=== PATIENT | male | born 1990 | race Caucasian/White ===

== ENCOUNTER 2017-11-27 15:51 | Emergency (ER) | payer SELFPAY ==
[2017-11-27 16:23] VITALS: TEMP 98.2; O2SAT 98
[2017-11-27] MEDS ORDERED: Sodium Chloride 0.9% 1,000 ML IV STA (17:14)
[2017-11-27] MEDS ORDERED: Sodium Chloride 0.9% 1,000 ML ONE (17:22)
[2017-11-27 17:25] LABS: BASO % 0.3 % (0.0-2.0); EOS # 0.1 K/uL (0.0-0.7); EOS % 0.5 % (0.0-4.0); HEMOGLOBIN 16.7 g/dL (12.0-18.0); LYMPH # 1.7 K/uL (1.0-4.3); LYMPH % 15.3 % (20.0-40.0); MEAN CELL VOLUME 88.1 fL (80.0-94.0); MEAN CORPUSCULAR HEMOGLOBIN 29.9 pg (27.0-31.0); MEAN PLATELET VOLUME 9.5 fL (7.2-11.7); MONO # 0.5 K/uL (0.0-0.8); MONO % 4.9 % (0.0-10.0); NEUT # 8.8 K/uL (1.8-7.0); NRBC % 0.1 % (0.0-2.0); RBC 5.6 Mil/uL (4.40-5.90); RED CELL DISTRIBUTION WIDTH 13.9 % (11.5-14.5); WHITE BLOOD COUNT 11.2 K/uL (4.8-10.8)
[2017-11-27 17:38] LABS: CALCIUM 9.3 mg/dl (8.6-10.4); GFR AFRICAN-AMERICAN > 60; GFR NON-AFRICAN AMERICAN > 60; LIPASE 100 U/L (23-300)
[2017-11-27 17:41] LABS: URINE BILIRUBIN NEGATIVE (NEGATIVE); URINE BLOOD LARGE (NEGATIVE); URINE CLARITY SL HAZY (Clear); URINE COLOR YELLOW (YELLOW); URINE GLUCOSE (UA) NEGATIVE (Normal)
[2017-11-27 17:42] LABS: URINE LEUKOCYTE ESTERASE NEGATIVE Leu/uL (Negative); URINE NITRATE NEGATIVE (NEGATIVE); URINE PROTEIN TRACE mg/dL (NEGATIVE); URINE UROBILINOGEN 0.2 mg/dL (0.2-1.0)
[2017-11-27 17:44] LABS: ALB/GLOB RATIO 1.2 (1.0-2.1); ALBUMIN 4.4 g/dL (3.5-5.0); ALT/SGPT 39 U/L (21-72); AST/SGOT 33 U/L (17-59); BLOOD UREA NITROGEN 16 mg/dL (9-20)
--- NOTE | 2017-11-27 18:13 | CT ---
PROCEDURE: CT Abdomen and Pelvis without Oral or IV contrast. HISTORY: Left flank pain COMPARISON: None available. TECHNIQUE: Contiguous axial images of the abdomen and pelvis. No oral or IV contrast administered. Coronal and Sagittal reformats generated and reviewed. Radiation dose: Total exam DLP = 1439.56 mGy-cm. This CT exam was performed using one or more of the following dose reduction techniques: Automated exposure control, adjustment of the mA and/or kV according to patient size, and/or use of iterative reconstruction technique. FINDINGS: There is limited evaluation of the solid organs without the administration of IV contrast. LOWER THORAX: No visible consolidation, pleural effusion, or pneumothorax. LIVER: Unremarkable unenhanced appearance. GALLBLADDER AND BILE DUCTS: Unremarkable unenhanced appearance. PANCREAS: Unremarkable unenhanced appearance. SPLEEN: Unremarkable unenhanced appearance. ADRENALS: Unremarkable unenhanced appearance. KIDNEYS AND URETERS: 2 mm proximal left ureteral calculus (series 3, image 109) with minimal proximal fullness of the collecting system. The unenhanced right kidney appears unremarkable without hydronephrosis or obstructing calculus evident. BLADDER: Under distention of the urinary bladder appears otherwise unremarkable. REPRODUCTIVE: Unremarkable. APPENDIX: The appendix appears within normal limits of caliber. No secondary signs of acute appendicitis. BOWEL: The stomach is nondistended. Lack of oral contrast limits evaluation for bowel pathology. The bowel loops appear within normal limits of caliber without evidence of intestinal obstruction. PERITONEUM: No significant free fluid. No definite free air. LYMPH NODES: No bulky lymphadenopathy identified. VASCULATURE: No aortic aneurysm. BONES: No acute osseous abnormality is detected. OTHER FINDINGS: None. IMPRESSION: 2 mm proximal left ureteral calculus with minimal proximal fullness of the collecting system.
[2017-11-27] MEDS ORDERED: Albuterol 0.083% Inhal Sol (2.5 mg/3 mL) UD ONE (18:22)
--- NOTE | 2017-11-27 18:34 | C.PDOC ---
Time Seen by Provider: 11/27/17 17:06 Chief Complaint (Nursing): Abdominal Pain History Per: Patient Onset/Duration Of Symptoms: Days (1), Waxing/Waning Current Symptoms Are (Timing): Still Present Severity: Moderate Location Of Pain/Discomfort: LUQ, LLQ Radiation Of Pain To:: Flank Quality Of Discomfort: "Pain" Associated Symptoms: Urinary Symptoms Exacerbating Factors: None Alleviating Factors: None Additional History Per: Prior Records Past Medical History Reviewed: Historical Data, Nursing Documentation, Vital Signs Vital Signs: Last Vital Signs Temp 98.2 F 11/27/17 16:21 Pulse 104 H 11/27/17 16:21 Resp 19 11/27/17 16:21 BP 176/96 H 11/27/17 16:21 Pulse Ox 98 11/27/17 16:21 - Medical History PMH: Asthma (CHILDHOOD) Surgical History: Tonsillectomy Family History: States: Unknown Family Hx - Social History Hx Tobacco Use: Yes Hx Alcohol Use: Yes Hx Substance Use: Yes - Immunization History Hx Tetanus Toxoid Vaccination: No Hx Influenza Vaccination: No Hx Pneumococcal Vaccination: No Review Of Systems Except As Marked, All Systems Reviewed And Found Negative. Constitutional: Negative for: Fever, Weakness Cardiovascular: Negative for: Chest Pain Respiratory: Negative for: Shortness of Breath Gastrointestinal: Positive for: Abdominal Pain. Negative for: Vomiting, Diarrhea Genitourinary: Positive for: Hematuria (?). Negative for: Scrotal Pain Musculoskeletal: Positive for: Back Pain. Negative for: Neck Pain Skin: Negative for: Rash Neurological: Negative for: Weakness, Numbness Physical Exam - Physical Exam Appears: Non-toxic, No Acute Distress Skin: Normal Color, Warm, Dry Head: Atraumatic, Normacephalic Eye(s): bilateral: Normal Inspection, PERRL, EOMI Oral Mucosa: Moist Neck: Normal ROM, Supple Cardiovascular: Rhythm Regular Respiratory: Normal Breath Sounds, No Accessory Muscle Use Gastrointestinal/Abdominal: Soft, Tenderness (left sided), No Guarding, No Rebound Back: CVA Tenderness (left) Extremity: Normal ROM Neurological/Psych: Oriented x3, Normal Motor, Normal Sensation ED Course And Treatment - Laboratory Results Result Diagrams: 11/27/17 17:21 11/27/17 17:21 O2 Sat by Pulse Oximetry: 98 Pulse Ox Interpretation: Normal - CT Scan/US CT abd/pelv Other Rad Studies (CT/US): Read By Radiologist, Radiology Report Reviewed CT/US Interpretation: IMPRESSION: 2 mm proximal left ureteral calculus with minimal proximal fullness of the collecting system. Progress - Interventions Interventions:: Observation, Intravenous fluid - Medications Administered Intravenous: NSAID - Data Reviewed Data Reviewed: Lab, Diagnostic imaging, Old records - Patient Status Patient status: Mostly improved - Patient Plan Patient Plan: Discharge, F/U with PCP Disposition Counseled Patient/Family Regarding: Studies Performed, Diagnosis, Need For Followup, Rx Given - Disposition Referrals: Niranjan Hughes MD [Staff Provider] - [facility] [Outside] Disposition: HOME/ ROUTINE Disposition Time: 18:34 Condition: IMPROVED Additional Instructions: Drink plenty of fluids. Follow up with a Urologist for further evaluation and treatment. Return to the ER if you develop fever, trouble urinating, worsening of symptoms or if you have any other concerns. Prescriptions: Hydrocodone/Acetaminophen [Hydrocodone-Acetamin 5-325 mg] 1 each PO Q4 PRN #15 tablet PRN Reason: Pain, Severe (8-10) Naproxen [Naprosyn] 1 tab PO BID PRN #20 tab PRN Reason: Pain Tamsulosin [Flomax] 0.4 mg PO HS #5 cap Instructions: Renal Colic (ED) - Clinical Impression Clinical Impression: Left ureteral calculus
[2017-11-27 18:56] VITALS: BP 168/98; PULSE 83; RESP 18
== END 2017-11-27 18:56 | disposition home or self-care (01) ==
LOC: C.ER 15:51
DX: N20.1 Calculus of ureter (principal)
CPT/HCPCS: 74176; 80053; 81001; 83690; 85025; 87086; 96361; 96374; 99285; J1885; J7040